=== PATIENT | female | born 1990 | race African-American/Black ===

== ENCOUNTER 2021-01-01 15:19 | Emergency (ER) | payer MEDICAID, OTHER ==
[2021-01-01] MEDS ORDERED: Take Home: Cyclobenzaprine 10 MG Tab, 4 Tab Pack PO ONE (16:01)
[2021-01-01] MEDS ORDERED: Take Home: Acetaminophen/HYDROcodone 325-10 MG, 5 Tab Pack PO ONE (16:01)
--- NOTE | 2021-01-01 16:10 | EDM.PDOC ---
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 She felt something pull in the left trapezius area. She denies any chronic neck or back problems. She took some tylenol as she is allergic to ibuprofen. She would like to go back to work, they asked her to get checked out here . has limited rom of the neck due to pain. 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 Constitutional: Reports: No Symptoms. Denies: Chills, Diaphoresis Eyes: Reports: No Symptoms Ears: Reports: No Symptoms. Denies: Dizziness Nose: Reports: No Symptoms. Denies: Epistaxis, Bloody Discharge Mouth/Throat: Reports: No Symptoms Respiratory: Reports: No Symptoms. Denies: Shortness of Breath, Wheezing, Cough Cardiovascular: Reports: No Symptoms. Denies: Chest Pain, Lightheadedness GI/Abdominal: Reports: No Symptoms. Denies: Abdominal Pain, Decreased Appetite, Diarrhea, Nausea Genitourinary: Reports: No Symptoms. Denies: Dysuria Musculoskeletal: Reports: Neck Pain (left trapezius area, with limited rom) Neurological: Reports: No Symptoms ED EXAM, GENERAL - Physical Exam Exam: See Below Exam Limited By: No Limitations General Appearance: Alert, WD/WN, No Apparent Distress Eye Exam: Bilateral Eye: EOMI, Normal Inspection, PERRL Ears: Normal External Exam Nose: Normal Inspection, Normal Mucosa Head: Atraumatic, Normocephalic Neck: Limited Range of Motion (with rotation and turning), Other (trapezius muscle on the left from origin to insertion with notable spasm. Limted rom due to this. no lesions or rashes, limted flexion and extension of neck. NO meningeal signs) Respiratory/Chest: No Respiratory Distress, Lungs Clear Cardiovascular: Normal Peripheral Pulses, Regular Rate, Rhythm, No Murmur GI/Abdominal: Normal Bowel Sounds Back Exam: Normal Inspection, Full Range of Motion. No: CVA Tenderness (L), CVA Tenderness (R) Extremities: Normal Inspection, Normal Range of Motion, No Pedal Edema Neurological: Alert, Oriented, CN II-XII Intact, Normal Cognition, Normal Gait, No Motor/Sensory Deficits Psychiatric: Normal Affect Course - Vital Signs Last Recorded V/S: Last Vital Signs Temp 36.7 C 01/01/21 15:25 Pulse 83 01/01/21 15:25 Resp 16 01/01/21 15:25 BP 106/35 L 01/01/21 15:25 Pulse Ox 98 01/01/21 15:25 - Orders/Labs/Meds Orders: Active Orders 24 hr Category Date Time Status Acetaminophen/HYDROcodone [Take Home: Acetaminophen/ Med 01/01/21 16:01 Once HYDROcodone 325-10MG] 1 packet PO ONETIME ONE Cyclobenzaprine [Take Home: Cyclobenzaprine 10 MG, 4 Med 01/01/21 16:01 Once Tab Pack] 1 packet PO ONETIME ONE - Re-Assessments/Exams Free Text/Narrative Re-Assessment/Exam: 01/01/21 16:23 Patient has notable spasm of the left trapezius area. acute injury. Will have her use heat, stretching, massage, tylenol during day. cyclobenzaprine and hydrocodone at night. advised to set up provider at the clinic for further evaluation, referral for therapy and more medications. Asks for note to return to work tomorrow without restrictions Departure - Departure Time of Disposition: 16:03 Disposition: Home, Self-Care 01 Condition: Good Clinical Impression: Muscle strain - Discharge Information *PRESCRIPTION DRUG MONITORING PROGRAM REVIEWED*: Not Applicable *COPY OF PRESCRIPTION DRUG MONITORING REPORT IN PATIENT ELVA: Not Applicable Instructions: Muscle Strain, [id number] Forms: ED Department Discharge, ED Return to Work/School Form Additional Instructions: You have a spasm/strain of the trapezius muscle. This is something that responds to heat better than cold. The more you stretch and move the area, the better off you will be. Take tylenol during the day as needed when working. Use heat, stretching and massage to help . Take the cyclobenzaprine every 8 hours while not working for muscle spasm relief. Take the hydrocodone every 6 hours while not working for pain relief. These medications may cause constipation. Make appointment at the clinic for follow up, further medications, physical therapy. Make sure you tell them it is a work force safety injury. You can return to work tomorrow Sepsis Event Note (ED) - Evaluation Sepsis Screening Result: No Definite Risk - Focused Exam Vital Signs: Vital Signs Temp Pulse Resp BP Pulse Ox 01/01/21 15:25 36.7 C 83 16 106/35 L 98 - My Orders Last 24 Hours: My Active Orders 01/01/21 16:01 Acetaminophen/HYDROcodone [Take Home: Acetaminophen/HYDROcodone 325-10MG] 1 packet PO ONETIME ONE Cyclobenzaprine [Take Home: Cyclobenzaprine 10 MG, 4 Tab Pack] 1 packet PO ONETIME ONE - Assessment/Plan Last 24 Hours: My Active Orders 01/01/21 16:01 Acetaminophen/HYDROcodone [Take Home: Acetaminophen/HYDROcodone 325-10MG] 1 packet PO ONETIME ONE Cyclobenzaprine [Take Home: Cyclobenzaprine 10 MG, 4 Tab Pack] 1 packet PO ONETIME ONE
== END 2021-01-01 16:18 | disposition home or self-care (01) ==
LOC: VM.ED 15:19
DX: S16.1XXA Strain of muscle, fascia and tendon at neck level, initial encounter (principal); X50.0XXA Overexertion from strenuous movement or load, initial encounter; Y92.129 Unspecified place in nursing home as the place of occurrence of the external cause; Y99.0 Civilian activity done for income or pay
CPT/HCPCS: 99283; A9270-GY

== ENCOUNTER 2021-01-05 12:53 | Emergency (ER) | payer MEDICAID ==
[2021-01-05] MEDS ORDERED: Ketorolac 30 MG/ML SDV IM ONE (13:08)
[2021-01-05] MEDS ORDERED: Orphenadrine 60 MG/2 ML Inj IM ONE (13:08)
--- NOTE | 2021-01-05 13:16 | EDM.PDOC ---
ED HPI GENERAL MEDICAL PROBLEM - General Chief Complaint: Upper Extremity Injury/Pain Stated Complaint: LT SHOULDER PAIN Time Seen by Provider: 01/05/21 13:00 Source of Information: Reports: Patient History Limitations: Reports: No Limitations - History of Present Illness INITIAL COMMENTS - FREE TEXT/NARRATIVE: Yany is a 30 year old female who presents to ER with complaints of left shoulder pain. Mostly feels it in the trapezius muscle and now it is radiating up her neck. She was seen on Saturday for the same pain. 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. 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 Was evaluated, placed on Flexeril and Rock and requested to return back to work. Does typically work daily 8-16 hours per day while here. Today at work, went to push a cart and pulled up and again had acute pain in the same area. Was advised that should be seen and rest for a few days but will need note for her travel company. Has been using heat to the shoulder, using a massager and taking the meds when not at work. Has a few of the pills left but has not yet taken any prior to coming here. 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: Reports: Acetaminophen, Heat Therapy - Related Data Allergies Allergy/AdvReac Type Severity Reaction Status Date / Time ibuprofen Allergy Swelling Verified 01/01/21 15:35 Home Meds: Home Meds buPROPion HCL [Wellbutrin Xl] 150 mg PO DAILY 01/01/21 [History] Past Medical History Psychiatric History: Reports: Depression Social & Family History - Tobacco Use Tobacco Use Status *Q: Unknown Ever Used Tobacco Review of Systems - Review of Systems Review Of Systems: See Below Constitutional: Reports: No Symptoms Eyes: Reports: No Symptoms Ears: Reports: No Symptoms Nose: Reports: No Symptoms Mouth/Throat: Reports: No Symptoms Respiratory: Reports: No Symptoms Cardiovascular: Reports: No Symptoms GI/Abdominal: Reports: No Symptoms Musculoskeletal: Reports: Neck Pain, Shoulder Pain, Muscle Pain Skin: Reports: No Symptoms Neurological: Reports: No Symptoms ED EXAM, GENERAL - Physical Exam Exam: See Below Exam Limited By: No Limitations General Appearance: Alert, WD/WN, No Apparent Distress Head: Normocephalic Neck: Normal Inspection, Supple, Tender Lateral, Other (tender to left lateral musculature. Pain with rotation and flexion in that area.) Extremities: Normal Inspection, Limited Range of Motion (increased discomfort to the trapezius area with abduction and external rotation. No pain to the shoulder joint. No deformity. Does have muscle tightness to the trapezius muscle and neck.) Neurological: Alert, Oriented Skin Exam: Warm, Dry Course - Orders/Labs/Meds Meds: Medications Discontinued Medications Generic Name Dose Route Start Last Admin Trade Name Freq PRN Reason Stop Dose Admin Ketorolac Tromethamine 30 mg 01/05/21 13:08 Ketorolac 30 Mg/Ml Sdv IM 01/05/21 13:09 ONETIME ONE Orphenadrine Citrate 60 mg 01/05/21 13:08 Orphenadrine 60 Mg/2 Ml Inj IM 01/05/21 13:09 ONETIME ONE Departure - Departure Time of Disposition: 13:17 Disposition: Home, Self-Care 01 Condition: Good Clinical Impression: Muscle strain - Discharge Information *PRESCRIPTION DRUG MONITORING PROGRAM REVIEWED*: No *COPY OF PRESCRIPTION DRUG MONITORING REPORT IN PATIENT ELVA: No Instructions: Muscle Strain, [id number] Forms: ED Department Discharge Additional Instructions: 1. Heat to affected area 2. Continue using massage to help with muscle spasms 3. Rest shoulder 4. Flexeril 10 mg every 8 hours for muscle spasm, make cause drowsiness 5. Rock 5/325- one tab every 6 hours as needed for more severe pain 6. Ibuprofen 600 mg every 6 hours for pain and inflammation 7. May return back to work on 01-08-2021 8. Call with any questions
[2021-01-05 13:55] VITALS: BP 121/81; PULSE 86
== END 2021-01-05 13:26 | disposition home or self-care (01) ==
LOC: VM.ED 12:53
DX: S16.1XXA Strain of muscle, fascia and tendon at neck level, initial encounter (principal); S46.912A Strain of unspecified muscle, fascia and tendon at shoulder and upper arm level, left arm, initial encounter; X50.1XXA Overexertion from prolonged static or awkward postures, initial encounter
CPT/HCPCS: 96372; 99283; J1885; J2360

== ENCOUNTER 2021-01-24 12:13 | Emergency (ER) | payer OTHER, MEDICAID ==
[2021-01-24] MEDS ORDERED: Acetaminophen 500 MG Tab PO ONE (12:26)
--- NOTE | 2021-01-24 12:32 | EDM.PDOC ---
ED HPI GENERAL MEDICAL PROBLEM - General Stated Complaint: HURT L HAND Time Seen by Provider: 01/24/21 12:24 Source of Information: Reports: Patient - History of Present Illness INITIAL COMMENTS - FREE TEXT/NARRATIVE: Yany is a 30 y/o female who comes to the ER with pain in her left hand. 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 Her left hand is now swollen and she has a shooting pain into the left forearm region. She also needs to have a drug screen since she was injured on the job. - Related Data Allergies Allergy/AdvReac Type Severity Reaction Status Date / Time ibuprofen Allergy Swelling Verified 01/05/21 13:13 Home Meds: Home Meds buPROPion HCL [Wellbutrin Xl] 150 mg PO DAILY 01/01/21 [History] Hydrocodone/Acetaminophen [HYDROcodone-Acetaminophen 5-325 MG] 1 - 2 each PO Q4HR PRN #30 tablet 01/24/21 [Rx] Past Medical History - Past Health History Medical/Surgical History: Denies Medical/Surgical History Psychiatric History: Reports: Depression Review of Systems - Review of Systems Review Of Systems: See Below Constitutional: Reports: No Symptoms Eyes: Reports: No Symptoms Ears: Reports: No Symptoms Nose: Reports: No Symptoms Mouth/Throat: Reports: No Symptoms Respiratory: Reports: No Symptoms Cardiovascular: Reports: No Symptoms GI/Abdominal: Reports: No Symptoms Genitourinary: Reports: No Symptoms Musculoskeletal: Reports: Hand Pain Skin: Reports: No Symptoms Neurological: Reports: No Symptoms Psychiatric: Reports: No Symptoms ED EXAM, GENERAL - Physical Exam Exam: See Below General Appearance: Alert, WD/WN, No Apparent Distress, Other (Adult female) Ears: Hearing Grossly Normal Nose: Normal Inspection Throat/Mouth: Normal Voice Head: Atraumatic, Normocephalic Neck: Normal Inspection Respiratory/Chest: No Respiratory Distress Cardiovascular: Regular Rate, Rhythm GI/Abdominal: Normal Bowel Sounds, Soft (Female) Exam: Deferred Rectal (Female) Exam: Deferred Back Exam: Normal Inspection, Full Range of Motion Extremities: Other (Note swelling to right hand, tender with touch, no deformity, but ROM is painful) Neurological: Alert, Oriented Psychiatric: Normal Affect, Normal Mood Skin Exam: Warm, Dry, Intact, Normal Color Course - Vital Signs Text/Narrative:: 1224 The patient was seen by the [facility]. Xray ordered. UDS ordered. She was given APAP 1gm po for pain. Xray was reviewed. She was placed in an OrthoGlass Ulnar-Gutter splint. Will have her follow up with Ortho for further care since this is a work related injury. She was given written discharge instructions and left the ER in stable condition. - Orders/Labs/Meds Orders: Active Orders 24 hr Category Date Time Status URINE DRUG SCREEN,POC [POC] Stat Lab 01/24/21 12:24 Ordered Meds: Medications Discontinued Medications Generic Name Dose Route Start Last Admin Trade Name Freq PRN Reason Stop Dose Admin Acetaminophen 1,000 mg 01/24/21 12:26 01/24/21 12:38 Acetaminophen 500 Mg Tab PO 01/24/21 12:27 1,000 mg ONETIME ONE Administration - Radiology Interpretation Free Text/Narrative:: XR Left Hand=note acute fx of the 4th MCP of the distal shaft region (See final report) Departure - Departure Time of Disposition: 13:26 Disposition: Home, Self-Care 01 Condition: Good Clinical Impression: Work related injury Fracture of metacarpal of left hand, closed Qualifiers: Encounter type: initial encounter Metacarpal bone: fourth Metacarpal location: shaft Fracture alignment: nondisplaced Qualified Code(s): S62.355A - Nondisplaced fracture of shaft of fourth metacarpal bone, left hand, initial encounter for closed fracture - Discharge Information *PRESCRIPTION DRUG MONITORING PROGRAM REVIEWED*: No *COPY OF PRESCRIPTION DRUG MONITORING REPORT IN PATIENT ELVA: No Prescriptions: Hydrocodone/Acetaminophen [HYDROcodone-Acetaminophen 5-325 MG] 1 - 2 each PO Q4HR PRN #30 tablet PRN Reason: Pain Instructions: Metacarpal Fracture Referrals: PCP,Not In Area [Primary Care Provider] - Forms: ED Return to Work/School Form Additional Instructions: -Hydrocodone/APAP 5/325mg 1-2 tablets every 4-6 hours as needed for pain #30 (Rx) -Apply ice as able -Keep the affected extremity elevated as much as possible -Keep the splint on at all times until seen by Ortho for consult -No work until seen by Ortho and cleared -Go to the [facility] for further evaluation. -Return to the ER as needed for any concerns - My Orders Last 24 Hours: My Active Orders 01/24/21 12:24 URINE DRUG SCREEN,POC [POC] Stat - Assessment/Plan Last 24 Hours: My Active Orders 01/24/21 12:24 URINE DRUG SCREEN,POC [POC] Stat
--- NOTE | 2021-01-24 12:53 | CR ---
[id number] RAD/RAD Hand Left 3V Exam: RAD Hand Left 3V Indication:LEFT HAND INJURY. Comparison: No prior imaging for comparison. Discussion/Impression: Acute fracture of the fourth metacarpal. Major fracture line is complete transversely orientated. Distal fragment is displaced a shaft width radial in relation of the proximal fragment. Fragment overlap of approximately 4 mm on AP view. 4 x 2 mm fracture fragment at the distal aspect of the proximal fracture fragment of the metacarpal. No other fractures. No dislocation. Saul Salcedo MD 01/24/21 2396 Thank you for allowing us to participate in the care of your patient.
== END 2021-01-24 13:37 | disposition home or self-care (01) ==
LOC: VM.ED 12:13
DX: S62.355A Nondisplaced fracture of shaft of fourth metacarpal bone, left hand, initial encounter for closed fracture (principal); Z88.8 Allergy status to other drugs, medicaments and biological substances; W23.0XXA Caught, crushed, jammed, or pinched between moving objects, initial encounter; Y99.0 Civilian activity done for income or pay
CPT/HCPCS: 73130-LT; 99283; 99283-25; A9270-GY